=== PATIENT | male | born 1955 | race Caucasian/White ===

== ENCOUNTER → 2024-03-24 | Outpatient (CLI) | payer MEDICARE | END | disposition home or self-care (01) | LOC: LAB 07:27 → LAB SHORT 07:27 | DX: B35.1 Tinea unguium (principal) | CPT/HCPCS: 88305; 88312 ==

== ENCOUNTER 2024-10-28 12:59 | Inpatient (IN) | payer MEDICARE ==
[~2024-10-28] VITALS: Ht 177.8 cm; Wt 81.8 kg
[2024-10-28 14:12] LABS: BASOPHILS ABSOLUTE AUTO 0.04 K/mm3 (0.00-0.23); BASOPHILS PERCENT AUTO 0 % (0-2); EOSINOPHILS ABSOLUTE AUTO 0.01 K/mm3 (0.00-0.68); EOSINOPHILS PERCENT AUTO 0 % (0-6); Hematocrit 40.5 % (37.0-53.0); Hemoglobin 13.3 g/dL (13.5-17.5); IMMATURE GRAN ABSOLUTE AUTO 0.12 K/mm3 (0.00-0.10); IMMATURE GRAN PERCENT AUTO 1 % (0-1); LYMPHOCYTES ABSOLUTE AUTO 0.52 K/mm3 (0.84-5.20); LYMPHOCYTES PERCENT AUTO 3 % (21-46); MONOCYTES ABSOLUTE AUTO 0.72 K/mm3 (0.16-1.47); MONOCYTES PERCENT AUTO 4 % (4-13); Mean Corpuscular HGB 30.6 pg (26.0-34.0); Mean Corpuscular HGB Conc 32.8 g/dL (31.5-36.5); Mean Corpuscular Volume 93 fL (80-100); Mean Platelet Volume 9.1 fL (9.1-12.4); NEUTROPHILS PERCENT AUTO 93 % (41-73); Platelet Count 239 K/mm3 (150-400); RDW Coefficient Variation 12.9 % (11.7-14.2); RDW Standard Deviation 44.3 fL (35.1-46.3); Red Blood Cell Count 4.35 M/mm3 (4.30-5.90); White Blood Cell Count 18.71 K/mm3 (4.00-11.30)
[2024-10-28 14:47] LABS: Source, Urine Voided
[2024-10-28 14:48] LABS: Albumin, Blood 3.5 g/dL (3.4-5.0); Albumin/Globulin Ratio 1.1 (0.8-1.8); Bilirubin, Total 1.4 mg/dL (0.1-1.0); Bun/Creatinine Ratio 13.5 (12.0-20.0); Calcium, Blood 8.6 mg/dL (8.5-10.1); Creatinine, Blood 1.41 mg/dL (0.60-1.20); Globulin, Blood 3.1 g/dL (2.2-4.0); Potassium, Blood 3.9 mmol/L (3.5-5.5); Total Protein, Blood 6.6 g/dL (6.4-8.2)
[2024-10-28 14:54] LABS: Appearance, Urine Clear (Clear); Bilirubin, Urine Neg (Neg); Blood, Urine 5+ (Neg); Color, Urine Yellow (P-Yellow); Glucose Qualitative, Urine Neg (Neg); Ketones, Urine 1+ (Neg); Leukocyte Esterase, Urine 3+ (Neg); Nitrite, Urine Pos (Neg); Protein, Urine 3+ (Neg); Urobilinogen, Urine NORM (Normal)
[2024-10-28 15:10] LABS: White Blood Cells, Urine 50-100 /hpf (0-5)
[2024-10-28 15:11] LABS: Bacteria Many /hpf; Hyaline Casts 0-2 /lpf (0-2); Mucus Light (0-Heavy); Squamous Epithelial Cells Rare /hpf (Few)
[2024-10-28] MEDS ORDERED: Cefepime HCl 2,000 MG in NS 50 ML IV ONE (15:25)
[2024-10-28] MEDS ORDERED: Lactated Ringer's 1,000 ML IV SCH (15:35)
[2024-10-28] MEDS ORDERED: Vancomycin HCL 1,250 MG in NS 250 ML IV ONE (15:45)
[2024-10-28 16:53] LABS: Base Excess Venous 0.4 mmol/L; Bicarbonate Venous 23.9 mmol/L (24.0-30.0); PCO2 Venous 44.3 mmHg (38-42); pH Blood Venous 7.37 (7.34-7.37)
[2024-10-28 16:57] LABS: Magnesium, Blood 1.7 mg/dL (1.6-2.4)
[2024-10-28 16:59] LABS: International Normalized Ratio 1.12; Prothrombin Time Results 11.9 Sec (9.7-11.5)
[2024-10-28 17:00] LABS: Phosphorus, Blood 1.8 mg/dL (2.5-4.9)
[2024-10-28] MEDS ORDERED: OLANZapine 10 MG Tab PO ONE (17:30)
[2024-10-28] MEDS ORDERED: Acetaminophen 500 MG Tab PO ONE (17:35)
[2024-10-28] MEDS ORDERED: Haloperidol Lactate Inj. 5 MG/ML Injection IV ONE (17:40)
[2024-10-28] MEDS ORDERED: Potassium Phosphate Dibasic 15 MM in Dextrose 5% 250 ML IV STA (19:09)
[2024-10-28] MEDS ORDERED: Acetaminophen 500 MG Tab PO PRN (19:10)
[2024-10-28] MEDS ORDERED: LORazepam 2 MG/ML 1ML Injection IV PRN (19:10)
[2024-10-28] MEDS ORDERED: Haloperidol Lactate Inj. 5 MG/ML Injection IV PRN (19:10)
[2024-10-28] MEDS ORDERED: ENOX120I SC (20:37)
[2024-10-28] MEDS ORDERED: CARBIDOPA-LEVO1 EA17 PO (20:38)
[2024-10-28] MEDS ORDERED: TAMS.4ER PO (20:39)
[2024-10-28] MEDS ORDERED: Tamsulosin HCl 0.4 MG Cap PO SCH (21:00)
[2024-10-28] MEDS ORDERED: Enoxaparin 80 MG/0.8 ML SYR SC SCH (21:00)
[2024-10-28 23:25] VITALS: BP 94/64
[2024-10-28] MEDS ORDERED: Ondansetron HCl 2 MG / ML 2ML Vial IV PRN (23:35)
[2024-10-28] MEDS ORDERED: NS 1,000 ML IV SCH (23:35)
[2024-10-29] MEDS ORDERED: Cefepime HCl 1,000 MG in NS 100 ML IV SCH (04:00)
[2024-10-29 04:20] VITALS: BP 106/62
[2024-10-29 04:33] LABS: Hematocrit 35.6 % (37.0-53.0); Mean Corpuscular HGB 30.7 pg (26.0-34.0); Mean Corpuscular HGB Conc 33.7 g/dL (31.5-36.5); Mean Corpuscular Volume 91 fL (80-100); Mean Platelet Volume 9.1 fL (9.1-12.4); Platelet Count 183 K/mm3 (150-400); RDW Coefficient Variation 13.2 % (11.7-14.2); RDW Standard Deviation 44.4 fL (35.1-46.3); Red Blood Cell Count 3.91 M/mm3 (4.30-5.90); White Blood Cell Count 23.32 K/mm3 (4.00-11.30)
[2024-10-29 05:00] LABS: Bilirubin, Total 1.3 mg/dL (0.1-1.0); Bun/Creatinine Ratio 13.7 (12.0-20.0); Creatinine, Blood 1.61 mg/dL (0.60-1.20); Potassium, Blood 3.7 mmol/L (3.5-5.5)
[2024-10-29] MEDS ORDERED: Vancomycin HCL 750 MG in NS 250 ML IV SCH (05:00)
[2024-10-29 05:01] LABS: BAND PERCENT MAN 14 % (0-8); BASOPHILS PERCENT MAN 0 % (0-2); EOSINOPHILS PERCENT MAN 0 % (0-6); LYMPHOCYTES ABSOLUTE MAN 0.46 K/mm3 (0.84-5.20); LYMPHOCYTES PERCENT MAN 2 % (21-46); MONOCYTES ABSOLUTE MAN 0.46 K/mm3 (0.16-1.47); MONOCYTES PERCENT MAN 2 % (4-13); NEUTROPHILS ABSOLUTE MAN 22.38 K/mm3 (1.96-9.15); SEG NEUTROPHILS PERCENT MAN 82 % (41-73); TOTAL CELLS COUNTED 100
[2024-10-29] MEDS ORDERED: Albumin (Human) 25gm/100ml 100 ML IV ONE (05:30)
--- NOTE | 2024-10-29 06:49 | NUR ---
PT ADMITTED TO PCU FROM ER. PT AOX4 WHEN ARRIVED TO UNIT, ABLE TO MAKE NEEDS KNOWN. PT IS ABLE TO GIVE ACCURATE MEDICAL HISTORY. MED REC WAS FINISHED IN ER WITH PRIOR TO HER LEAVING FOR HOME. PT HAS BEEN MOSTLY STABLE THROUGHOUT THE SHIFT, OCCASSIONAL SOFT BP AND TEMP WAS ELEVATED X1 100.8-MAX TEMP REACHED. PT WAS GIVEN TYLENOL FOR THAT WITH GOOD EFFECT, TEMP AT RECHECK WAS 99.1. PT IS ABLE TO STAND AND TRANSFER TO BSC WITH 1-2 ASSIST, IS MODERATELY UNSTEADY. PT HAS BEEN CONTINENT AND INCONTINENT OF BOTH BOWEL AND BLADDER THIS SHIFT. PT CONFUSION DID INCREASE WITH FEVER AND HAS SINCE RETURNED TO AOX4. PT HAD A LARGE, LOOSE, BROWN, BM IN BSC. VENOUS INSUFFIENCY PATCHES B/L ANKLES PHOTOGRPAHED AND PICS IN CHART.
[2024-10-29 08:36] VITALS: BP 104/58
--- NOTE | 2024-10-29 08:39 | NUR ---
IN AT BEDSIDE, LET THIS RN KNOW ABOUT HUSBANDS TAPER FOR LOVENOX. PER ORDER FROM [facility] JOSEP ORDERED FOR 120MG LOVENOX 10/29/24 THEN TO TAPER DOWN TO 60MG LOVENOX ON 10/30/24, 24 HOURS PRIOR TO PROCEDURE WHICH IS SCHEDULE IN [place] ON Sunday10/30/[address] HAQUE.
[2024-10-29] MEDS ORDERED: Enoxaparin 120 MG/0.8 ML SYR SC SCH (09:00)
[2024-10-29] MEDS ORDERED: Levodopa/Carbidopa 100/25 MG Tab *CR PO SCH (09:00)
[2024-10-29] MEDS ORDERED: Cefepime HCl 2,000 MG in NS 100 ML IV SCH (09:00)
--- NOTE | 2024-10-29 10:10 | NUR ---
IN AT BEDSIDE. PATIENT REPORTED TO DR. SULLIVAN OF HAVING TESTICULAR PAIN WITH URINATION. DR. SULLIVAN ORDERED FOR A SCROTUM ULTRA SOUND TO RULE OUT TORSION VS INFECTION. DR. SULLIVAN DISCUSSED WITH PATIENT AND IN REGARDS TO OUTPATIENT APPOINTMENT SCHEDULED FOR 10/31/24 WITH UROLOGIST IN [place] TO HAVE STENTS REMOVED PATIENT WILL NEED IV ABX D/T POSITIVE BLOOD CULTURE. PATIENT AND ARE RECEPTIVE.
[2024-10-29 11:02] VITALS: BP 122/59
--- NOTE | 2024-10-29 11:58 | NUR ---
REASSESSED PATIENT AFTER TYLENOL GIVEN FOR FEVER, PATIENTS TEMPTERATURE INCREASED TO 103.1-DR. SULLIVAN NOTIFIED AND ORDERED FOR AN ADDITIONAL ONE TIME DOSE OF 500MG OF TYLENOL AND TO PROVIDE PATIENT WITH ICE PACKS TO GET TEMPERATIRE DOWN. PATIENT HAS ICE PACKS PLACED AND FAN GOING.
[2024-10-29] MEDS ORDERED: Acetaminophen 500 MG Tab PO ONE (12:00)
--- NOTE | 2024-10-29 12:06 | NUR ---
PATIENT HAVING DIFFICULTY URINATING, BLADDER SCAN DONE SHOWING A VOLUME OF 121MG, PATIENT ABLE TO VOID 100ML'S.
--- NOTE | 2024-10-29 12:58 | NUR ---
contacted and notified of patients temperature following additional dose of tylenol. temperature came down from 103.1 degrees fhrenheit to 99.9 degrees fahrenheit. patient appears to be in better spirits since the decrease in temperature. notified of patients c/o difficulty urinating and starting a stream.
[2024-10-29 16:02] VITALS: BP 96/61
--- NOTE | 2024-10-29 18:25 | NUR ---
SHIFT SUMMARY. PATIENT IS A&OX4. PATIENT AFEBRILE AT BEGINNING OF SHIFT. PATIENT SPIKED FEVER TO 103.1 TODAY-SEE PREVIOUS NOTES. PATIENTS RECENT TEMPERATURE WNL. PATIENT IS CONTINENT/INCONTINENT-PATIENT IS ABLE TO TELL WHEN HE NEEDS TO HAVE A BM BUT DOES NOT ALWAYS KNOW WHEN HE HAS TO URINATE, PATIENT DID REPORT DIFFICULTY STARTING STREAM WITH URINATION-DOCTOR IS AWARE. 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 PATIENT HAD BM TODAY THAT WAS LOOSE WITH PELLET FORMED STOOL. PATIENT CURRENTLY RECEIVING IV ABX-BLOOD CULTURE POSITIVE; SEE LABS. PATIENTS IN AT BEDSIDE OFF AND ON T/O DAY. PATIENT TAKES MEDS WHOLE WITH WATER. 1-2 PERSON ASSIST TO BSC WITH FWW AND GB. PATIENT IS PLEASANT AND COOPERATIVE WITH CARE. PLEASE SEE PREVIOUS NOTES IN REGARDS TO PATIENTS OUTPATIENT APPOINTMENT SCHEDULED 10/30/24. BED IS LOCKED IN LOWEST POSITION WITH CALL LIGHT IN REACH. CARE IS ONGOING.
[2024-10-29 19:58] VITALS: BP 103/63
[2024-10-30 01:23] VITALS: BP 105/70
[2024-10-30 04:15] LABS: Base Excess Venous -2.9 mmol/L; Bicarbonate Venous 22.6 mmol/L (24.0-30.0); PCO2 Venous 31.3 mmHg (38-42); pH Blood Venous 7.44 (7.34-7.37)
[2024-10-30 04:22] VITALS: BP 106/89
[2024-10-30 04:49] LABS: BASOPHILS ABSOLUTE AUTO 0.02 K/mm3 (0.00-0.23); BASOPHILS PERCENT AUTO 0 % (0-2); Hematocrit 33.5 % (37.0-53.0); LYMPHOCYTES ABSOLUTE AUTO 1.09 K/mm3 (0.84-5.20); LYMPHOCYTES PERCENT AUTO 6 % (21-46); MONOCYTES ABSOLUTE AUTO 0.67 K/mm3 (0.16-1.47); MONOCYTES PERCENT AUTO 4 % (4-13); Mean Corpuscular HGB 30.9 pg (26.0-34.0); Mean Corpuscular HGB Conc 32.8 g/dL (31.5-36.5); Mean Corpuscular Volume 94 fL (80-100); Mean Platelet Volume 9.9 fL (9.1-12.4); Platelet Count 146 K/mm3 (150-400); RDW Coefficient Variation 13.4 % (11.7-14.2); RDW Standard Deviation 46.5 fL (35.1-46.3); Red Blood Cell Count 3.56 M/mm3 (4.30-5.90)
[2024-10-30 05:01] LABS: EOSINOPHILS ABSOLUTE AUTO 0.02 K/mm3 (0.00-0.68); EOSINOPHILS PERCENT AUTO 0 % (0-6); IMMATURE GRAN ABSOLUTE AUTO 0.87 K/mm3 (0.00-0.10); IMMATURE GRAN PERCENT AUTO 5 % (0-1); NEUTROPHILS ABSOLUTE AUTO 14.93 K/mm3 (1.96-9.15); NEUTROPHILS PERCENT AUTO 85 % (41-73)
--- NOTE | 2024-10-30 05:06 | NUR ---
SHIFT SUMMARY PT A&O X4, CALM, COOPERATIVE TO CARE. PT HAS HX OF PARKISONS, TREMOR AT BASELINE. HR IN THE 70'S, SR. DENIES CP/PRESSURE, NUMB/TINGLING, SBP STABLE. O2 >92% ON RA, HE DENIES ANY SOB. PT WAS FEBRILE AT START OF SHIFT, ICE PACKS APPLIED UNDER ARMS, PT NOW AFEBRILE. URINAL AT BEDSIDE. PT HAD URETER STENTS PLACED. HE HAS SMALL AMOUNTS OF VOIDS, FREQUENTLY. HE DENIES ANY N/V. FLUIDS INFUSING PER EMAR. NO ACUTE CHANGES T/O SHIFT. WILL MONITOR PT AND REPORT TO ONCOMING RN.
[2024-10-30 05:09] LABS: Alanine Aminotransfer (ALT/SGP 49 U/L (12-78); Albumin, Blood 2.4 g/dL (3.4-5.0); Albumin/Globulin Ratio 0.8 (0.8-1.8); Alk Phos 57 U/L (50-136); Anion Gap 11 mmol/L (3-11); Aspartate Aminotrans (AST/SGOT 42 U/L (12-37); Bilirubin, Total 0.5 mg/dL (0.1-1.0); Blood Urea Nitrogen 30 mg/dL (8-24); Bun/Creatinine Ratio 18.4 (12.0-20.0); CO2, Blood 20 mmol/L (21-32); Calcium, Blood 7.3 mg/dL (8.5-10.1); Chloride, Blood 109 mmol/L (98-108); Creatinine, Blood 1.63 mg/dL (0.60-1.20); Globulin, Blood 2.9 g/dL (2.2-4.0); Glomerular Filtration Rate 46 (60-); Glucose, Blood 124 mg/dL (70-99); Potassium, Blood 3.6 mmol/L (3.5-5.5); Sodium, Blood 136 mmol/L (136-145); Total Protein, Blood 5.3 g/dL (6.4-8.2); Vancomycin, Trough 15.6 ug/mL (5.0-10.0)
[2024-10-30 05:27] LABS: BAND PERCENT MAN 1 % (0-8); BASOPHILS PERCENT MAN 0 % (0-2); EOSINOPHILS PERCENT MAN 0 % (0-6); LYMPHOCYTES ABSOLUTE MAN 0.88 K/mm3 (0.84-5.20); LYMPHOCYTES PERCENT MAN 5 % (21-46); MONOCYTES ABSOLUTE MAN 0.52 K/mm3 (0.16-1.47); MONOCYTES PERCENT MAN 3 % (4-13); NEUTROPHILS ABSOLUTE MAN 16.19 K/mm3 (1.96-9.15); SEG NEUTROPHILS PERCENT MAN 91 % (41-73); TOTAL CELLS COUNTED 100
[2024-10-30 07:15] VITALS: BP 107/72
--- NOTE | 2024-10-30 08:31 | NUR ---
ASSUMPTION OF CARE: TAURUS IS ALERT AND ORIENTED X4 ABLE TO MAKE NEEDS KNOWN, INCREASED STRENGTH IN LOWER EXTREMES, HOWEVER, PARKISON SHUFFLE AND GENERALIZED WEAKNESS STILL PRESENT, IS OOB FOR BREAKFAST, VSS. ONLY ACUTE CONCERN IS NEED FOR UROLOGY AND REMOVAL OF URETRAL STENTS. PATIENT OVERALL IMPROVED DENIES CHEST PAIN PRESSURE OR SOB AT REST. BED/CHAIR ALARMS FOR SAFETY. ON RA. NO OTHER ACUTE CONCERN PLAN OF CARE CONTINUES.
[2024-10-30] MEDS ORDERED: Enoxaparin 60 MG/0.6 ML SYR SC ONE ×2 (09:00→12:50)
[2024-10-30] MEDS ORDERED: Enoxaparin 60 MG/0.6 ML SYR SC SCH (09:00)
[2024-10-30 12:06] VITALS: BP 105/68
[2024-10-30] MEDS ORDERED: VISBIOME 112.51 EACH PO (14:14)
[2024-10-30] MEDS ORDERED: NITR100CA PO (14:14)
--- NOTE | 2024-10-30 17:26 | NUR ---
DISHCARGE SUMMARY: PATIENT WITH NO ACUTE CONCERNS, [facility] CALLED OK TO HAVE PROCEDURE THE NEXT DAY . AT BEDSIDE UNDERSTOOD DISHCARGE INSTRUCTION WELL PATIENT. HAS ALREADY WENT TO PHARMACY AND PICKED UP MEDCIATIONS. DENIES CHEST PAIN PRESSURE OR SOB AT REST. PATIENT VSS, IV'S REMOVED, TELE OFF, AND PATIENT WHEELED OUT BY PCT. NO ACUTE CONCERN. A/O X 4. STILL VOID WITHOUT RETENTION AT TIME OF DISCHARGE. AFEBRILE 98.8 AT TIME OF DISCHARGE.
== END 2024-10-30 17:26 | disposition home or self-care (01) | DRG 698 ==
LOC: ER 12:59 → PCU 18:26
PROVIDERS: Emergency Medicine; Family Medicine; Nurse Practitioner Acute Care; Student in an Organized Health Care Education/Training Program; ADMIT Student in an Organized Health Care Education/Training Program
PROC: 3E03329 Introduction of Other Anti-infective into Peripheral Vein, Percutaneous Approach (ICD-10-PCS; principal; 2024-10-28)
PROC: 30233J1 Transfusion of Nonautologous Serum Albumin into Peripheral Vein, Percutaneous Approach (ICD-10-PCS; 2024-10-29)
DX: T83.592A Infection and inflammatory reaction due to indwelling ureteral stent, initial encounter (principal); A41.50 Gram-negative sepsis, unspecified; G92.8 Other toxic encephalopathy; R65.20 Severe sepsis without septic shock; D68.51 Activated protein C resistance; N17.9 Acute kidney failure, unspecified; E87.21 Acute metabolic acidosis; Z66 Do not resuscitate; G20.A1 Parkinson's disease without dyskinesia, without mention of fluctuations; R74.01 Elevation of levels of liver transaminase levels; E83.39 Other disorders of phosphorus metabolism; N50.82 Scrotal pain; D64.9 Anemia, unspecified; N40.0 Benign prostatic hyperplasia without lower urinary tract symptoms; B96.1 Klebsiella pneumoniae [K. pneumoniae] as the cause of diseases classified elsewhere; B95.2 Enterococcus as the cause of diseases classified elsewhere; Z79.01 Long term (current) use of anticoagulants; Z87.442 Personal history of urinary calculi
CPT/HCPCS: 36415; 70450; 71045; 74177; 76870; 80053; 80202; 81001; 82803; 83605; 83735; 84100; 85025; 85610; 85730; 87040; 87077; 87086; 87186; 93005; 93010; 96361; 96365; 96366; 96367; 96375; 99285-25; A9270; J0692; J1630; J1650; J3370; J7030; J7050; J7060; J7120; Q9967

== ENCOUNTER → 2024-11-05 | Outpatient (CLI) | payer MEDICARE ==
[~2024-11-05] MED LIST: CARBIDOPA-LEVO1 EA17 PO; ENOX120I SC; NITR100CA PO; TAMS.4ER PO; VISBIOME 112.51 EACH PO
[2024-11-12 14:35] LABS: CALCIUM, URINE - PER 24H 50 mg/d (100-250); CALCIUM, URINE - PER VOLUME 3.7 mg/dL; CHLORIDE, URINE - PER 24H 159 mmol/d (140-250); CHLORIDE, URINE - PER VOLUME 118 mmol/L; CITRIC ACID, URINE - PER 24H 111 mg/d (320-1240); CITRIC ACID,URINE - PER VOLUME 82 mg/L; CREATININE, URINE - PER 24H 1228 mg/d (800-2100); CREATININE, URINE - PER VOLUME 91 mg/dL; HOURS COLLECTED 24 hr; MAGNESIUM, URINE PER 24H 94 mg/d (12-199); OXALATE, URINE - PER 24H 27 mg/d (16-49); OXALATE, URINE - PER VOLUME 20 mg/L; PH, URINE 6.54 (5.00-7.50); PHOSPHORUS, URINE - PER 24H 608 mg/d (400-1300); PHOSPHORUS, URINE - PER VOLUME 45 mg/dL; POTASSIUM, URINE - PER 24H 38 mmol/d (25-125); POTASSIUM, URINE - PER VOLUME 28 mmol/L; SODIUM, URINE - PER 24H 174 mmol/d (51-286); SODIUM, URINE - PER VOLUME 129 mmol/L; SULFATE, URINE - PER 24H 12 mmol/d (6-30); SULFATE, URINE - PER VOLUME 9 mmol/L; TOTAL VOLUME 1350 mL; URIC ACID, URINE - PER 24H 526 mg/d (250-750); URINE SUPERSATURATION INTERP Normal; URINE SUPERSATURATION, CAHPO4 1.07; URINE SUPERSATURATION, UA CALC 0.18
== END | disposition home or self-care (01) ==
LOC: LAB SHORT 08:39 → LAB 08:39 → LAB FUT 09-16 14:05
PROVIDERS: Urology
DX: N13.2 Hydronephrosis with renal and ureteral calculous obstruction (principal)
CPT/HCPCS: 81003; 82131; 82140; 82340; 82436; 82507; 82570; 83735; 83935; 83945; 84105; 84133; 84300; 84392; 84560